=== PATIENT | female | born 1965 | race Asian ===

== ENCOUNTER → 2019-03-10 | Emergency (ER) | payer MEDICARE, MEDICAID ==
[~2019-03-10] VITALS: Ht 170.2 cm; Wt 65.8 kg
[~2019-03-10] MED LIST: TRAZODONE HCL150 MG ORAL
--- NOTE | 2019-03-10 01:58 | NUR ---
ED Nurse Note: pt presents to ED c/o insomnia x3-4 days. pt states that she usually takes trazadone to help her sleep but she hasn't had it for the past few days and has not been in to see her PCP to get her meds refilled. no other complaints at this time
[2019-03-10 01:59] VITALS: BP 128/93
--- NOTE | 2019-03-10 02:11 | Emergency Room Report ---
History of Present Illness General Chief Complaint: Medication Refill Source: Patient Present Illness HPI 53-year-old female presents with complaints of insomnia, relieving factors trazodone aggravating factors none severity is mild, patient ran out of trazodone, states that she has not seen her PCP to refill her trazodone, patient is requesting a small refill Allergies: Coded Allergies: No Known Allergies (Unverified , 03/10/19) Patient History Past Medical History: see triage record Last Menstrual Period: na Reviewed Nursing Documentation: PMH: Agreed; PSxH: Agreed Nursing Documentation-PMH Hx Hypertension: Yes Review of Systems All Other Systems: negative except mentioned in HPI Physical Exam Vital Signs Date Time Temp Pulse Resp B/P (MAP) Pulse Ox O2 Delivery O2 Flow Rate FiO2 03/10/19 01:44 98.2 96 16 128/93 (105) 96 Room Air General Appearance: well appearing, no apparent distress Head: normocephalic, atraumatic Eyes: bilateral eye PERRL, bilateral eye EOMI ENT: hearing grossly normal, normal voice Neck: full range of motion, supple Respiratory: no respiratory distress, speaking full sentences Musculoskeletal: gait/station normal Neurologic: alert, normal gait Psychiatric: mood/affect normal Skin: no rash Medical Decision Making Diagnostic Impression: Primary Impression: Encounter for medication refill ER Course Patient counseled to follow-up in clinic, will provide a small prescription prescription for trazodone Last Vital Signs Date Time Temp Pulse Resp B/P (MAP) Pulse Ox O2 Delivery O2 Flow Rate FiO2 03/10/19 01:59 98.2 83 16 128/93 96 Room Air Disposition: HOME, SELF-CARE Condition: Stable Scripts Trazodone* (TRAZODONE*) 150 Mg Tablet 150 MG ORAL BEDTIME, #12 TAB Prov: Brian Ferris MD 03/10/19 Referrals: [facility] Patient Instructions: Medicine Refill at the Emergency Department Additional Instructions: The patient was provided with discharge instructions, notified to follow-up with a primary care doctor and or specialist in the next 24-48 hours, and to return to the ED if they have worsening of their symptoms. Please note that this report is being documented using [employer] technology. This can lead to erroneous entry secondary to incorrect interpretation by the dictating instrument. Brian Ferris MD Mar 10, 2019 02:11
== END | disposition home or self-care (01) ==
LOC: EMR 02:16
DX: Z76.0 Encounter for issue of repeat prescription (principal); G47.00 Insomnia, unspecified; I10 Essential (primary) hypertension
CPT/HCPCS: 99282